=== PATIENT | female | born 1980 | race Caucasian/White ===

== ENCOUNTER 2021-04-05 14:57 | Day surgery (SDC) | payer OTHER ==
[~2021-04-05] VITALS: Ht 175.3 cm; Wt 100.8 kg
[2021-04-05] MEDS ORDERED: NS 1,000 ML IV ONE (15:20)
[2021-04-05] MEDS ORDERED: MORPHINE 4 MG/ML 1ML VIAL/SYRINGE (J2270) IV ONE (15:20)
[2021-04-05] MEDS ORDERED: ONDANSETRON 4MG/2ML VIAL IV ONE (15:20)
[2021-04-05 16:39] LABS: BASO % 0.1 % (0.0-1.0); EOS % 0.2 % (0.0-3.0); HEMATOCRIT 40.5 % (36.0-47.0); HEMOGLOBIN 13.7 g/dl (12.0-15.5); LYMPH # 1.2 10^3/uL (1.5-5.0); LYMPH % 8.9 % (24.0-44.0); MEAN CORPUSCULAR HEMOGLOBIN 29.7 pg (27.0-33.0); MEAN CORPUSCULAR HGB CONC 33.8 g/dl (32.0-36.5); MEAN CORPUSCULAR VOLUME 87.7 fl (80.0-96.0); MONO # 0.7 10^3/uL (0.0-0.8); MONO % 5.3 % (2.0-8.0); NEUTROPHILS # 11.5 10^3/uL (1.5-8.5); RED BLOOD COUNT 4.62 10^6/uL (4.00-5.40); WHITE BLOOD COUNT 13.6 10^3/uL (4.0-10.0)
[2021-04-05 16:49] LABS: HCG, SERUM QUALITATIVE NEGATIVE (NEGATIVE)
[2021-04-05 16:57] LABS: ALBUMIN 3.3 GM/DL (3.2-5.2); ALT/SGPT 23 U/L (12-78); BILIRUBIN,DIRECT 0.4 MG/DL (0.0-0.2); BILIRUBIN,TOTAL 1.8 MG/DL (0.2-1.0); BLOOD UREA NITROGEN 15 MG/DL (7-18); CALCIUM LEVEL 7.9 MG/DL (8.5-10.1); CARBON DIOXIDE LEVEL 22 MEQ/L (21-32); CHLORIDE LEVEL 106 MEQ/L (98-107); CREATININE FOR GFR 0.66 MG/DL (0.55-1.30); GLOMERULAR FILTRATION RATE > 60.0 (>58); GLUCOSE, FASTING 103 MG/DL (70-100); LIPASE 53 U/L (73-393); POTASSIUM SERUM 3.8 MEQ/L (3.5-5.1); SODIUM LEVEL 138 MEQ/L (136-145); TOTAL PROTEIN 6.6 GM/DL (6.4-8.2)
[2021-04-05] MEDS ORDERED: ISOVUE-370 76% 100ML VIAL As Ordered ONE (17:01)
[2021-04-05] MEDS ORDERED: PIPERACILLIN/TAZOBACTAM SOD 4.5 GM in D5W MINI-BAG PLUS 50 ML IV ONE (19:00)
--- NOTE | 2021-04-05 19:02 | REPVR ---
PROCEDURE INFORMATION: Exam: CT Abdomen And Pelvis Without Contrast Exam date and time: 04/05/2021 5:08 PM Age: 40 years old Clinical indication: Abdominal pain; Localized; Right lower quadrant (rlq); Additional info: Rlq pain TECHNIQUE: Imaging protocol: Computed tomography of the abdomen and pelvis without contrast. Axial, coronal and sagittal reformatted images were created and reviewed. Radiation optimization: All CT scans at this facility use at least one of these dose optimization techniques: automated exposure control; mA and/or kV adjustment per patient size (includes targeted exams where dose is matched to clinical indication); or iterative reconstruction. COMPARISON: No relevant prior studies available. FINDINGS: Tubes, catheters and devices: Intrauterine device in place. Lungs: Mild linear stranding and groundglass at the lung bases, likely due to atelectasis and/or scarring. 8 mm pleural based right lower lobe nodular density. 3 mm pleural based left lower lobe nodular density. Diaphragm: Elevated right hemidiaphragm. Liver: Mild hepatomegaly. Gallbladder and bile ducts: Status post cholecystectomy. No biliary ductal dilatation. Pancreas: Unremarkable. Spleen: Mild splenomegaly. Adrenal glands: Normal. No mass. Kidneys and ureters: Contrast in the renal collecting systems. No definite radiodense calculi. No hydronephrosis. Stomach and bowel: No bowel wall thickening. No obstruction. No pneumatosis. Appendix: Dilated, thickwalled appendix with mild periappendiceal inflammatory change. Intraperitoneal space: Trace nonspecific free pelvic fluid, likely physiologic and/or reactive. No organized fluid collection. No free air. Vasculature: Unremarkable. No aneurysm. Lymph nodes: No pathologically enlarged lymph nodes. Urinary bladder: Unremarkable as visualized. Reproductive: 5.1 x 4.6 cm mildly complex left adnexal cystic lesion. Bones/joints: No acute osseous abnormality. Mild degenerative changes. S-shaped scoliosis. Soft tissues: Tiny, fat containing umbilical hernia. IMPRESSION: 1. Acute appendicitis, as described above. No abscess, obstruction or free air. 2. 5.1 x 4.6 cm mildly complex left adnexal cystic lesion. If clinically indicated, pelvic ultrasound may be obtained for further evaluation. 3. Pleural based bibasilar pulmonary nodular densities, measuring up to 8 mm in the right lower lobe. Recommend follow-up CT Chest in 6-12 months. (References: Elsy) 4. Additional findings, as above. REFERENCES: 1. Guadalupe Alonso, et al. Guidelines for Management of Incidental Pulmonary Nodules Detected on CT Images: From the Fleischner Society 2017. Radiology. 2017;284(1):228-243. 2. Robson J, et al. Updated Fleischner Society Guidelines for Managing Incidental Pulmonary Nodules: Common Questions and Challenging Scenarios. Radiographics. 2018;38(5):0655-4965. Electronically signed by: Preston Solis On 04/05/2021 19:01:22 PM
[2021-04-05] MEDS ORDERED: HOME MED LIST COMPLETE! XX SCH (19:35)
[2021-04-05] MEDS ORDERED: BUPIVACAINE/EPIN 0.25% 30 ML VIAL As Ordered ONE (21:47)
[2021-04-05] MEDS ORDERED: SUGAMMADEX SODIUM 500 MG/5 ML VIAL (BRIDION) As Ordered ONE (22:07)
[2021-04-05] MEDS ORDERED: ACETAMINOPHEN 1000MG 100ML IV BTL (OFIRMEV) (J0131 PER 10MG) As Ordered ONE (22:07)
[2021-04-05] MEDS ORDERED: KETOROLAC 60MG 2ML VIAL As Ordered ONE (22:07)
[2021-04-05] MEDS ORDERED: ZOSYN 4.5GM VIAL (J2543) As Ordered ONE (22:08)
[2021-04-05] MEDS ORDERED: fentaNYL 100 MCG/2 ML INJECTION (J3010) As Ordered ONE ×3 (22:15→23:30)
[2021-04-05] MEDS ORDERED: dexameTHASONE 4 MG/ML 1ML VIAL (J1100 PER 1MG) As Ordered ONE (22:19)
[2021-04-05] MEDS ORDERED: MIDAZOLAM INJ 2MG/2ML VIAL (J2250 PER 1MG) As Ordered ONE (22:19)
[2021-04-05] MEDS ORDERED: LIDOCAINE 2% 100MG/5ML SDV (FOR ANES.) As Ordered ONE (22:19)
[2021-04-05] MEDS ORDERED: ROCURONIUM BROMIDE 50 MG/5 ML VIAL As Ordered ONE (22:19)
[2021-04-05] MEDS ORDERED: propofoL 200 MG/20 ML VIAL As Ordered ONE (22:19)
[2021-04-05] MEDS ORDERED: ONDANSETRON 4MG/2ML VIAL As Ordered ONE (22:19)
[2021-04-05] MEDS ORDERED: ALBUTEROL 6.7GM INHALER **FOR ANES. CART/OMNICELL ONLY As Ordered ONE (22:39)
[2021-04-05] MEDS ORDERED: KETOROLAC 30 MG/ML 1ML VIAL IV PRN (22:40)
[2021-04-05] MEDS ORDERED: MORPHINE 2 MG/ML 1ML VIAL (J2270) IV PRN ×2 (22:40)
[2021-04-05] MEDS ORDERED: ONDANSETRON 4 MG TAB PO PRN (22:40)
[2021-04-05] MEDS: fentaNYL 100 MCG/2 ML INJECTION (J3010) IV PRN ×3 (23:30→23:40)
[2021-04-05] MEDS ORDERED: PERCOCET 5MG/325MG TAB PO PRN (23:35)
[2021-04-05] MEDS ORDERED: METOCLOPRAMIDE INJ 10MG/2ML VIAL (J2765 PER 1) IV PRN (23:35)
[2021-04-05] MEDS ORDERED: ONDANSETRON 4MG/2ML VIAL IV PRN (23:35)
[2021-04-05] MEDS ORDERED: LR 1,000 ML IV SCH (23:35)
[2021-04-06] VITALS (8 sets, daily range): BP systolic 107–117; BP diastolic 52–65; O2SAT 96
[2021-04-06] MEDS: NS 1,000 ML IV SCH ×2 (00:17→06:40)
[2021-04-06] MEDS: PIPERACILLIN/TAZOBACTAM SOD 3.375 GM in D5W MINI-BAG PLUS 50 ML IV SCH ×2 (03:40→09:48)
[2021-04-06] MEDS ORDERED: PANTOPRAZOLE 40MG VIAL (C9113 PER 1) IV SCH (09:00)
[2021-04-06] MEDS ORDERED: AUGM500T34 PO (09:19)
--- NOTE | 2021-04-08 14:42 | ED PDOC ---
Post-Departure Follow-Up radiology report faxed to [facility]rieta Sarah MD Apr 08, 2021 14:42
== END 2021-04-06 11:50 | disposition home or self-care (01) ==
LOC: M ED 14:57 → M SDC 14:58 → M ED INP 20:32 → UNDOADMIN 20:32 → M ED INP 23:58 → M MS5PR 23:58 → M SDC 04-06 11:50 → UNDODISIN 04-06 11:50
PROVIDERS: ATTEND Surgery
DX: K37 Unspecified appendicitis (principal); Z88.8 Allergy status to other drugs, medicaments and biological substances
CPT/HCPCS: 36415; 44970; 80048; 80076; 81001; 83690; 84703; 85025; 88304; 96365; 96366; 96375; 99284; C9113; J0131; J1100; J1885; J2250; J2270; J2405; J2543; J3010; Q9967